=== PATIENT | male | born 2005 | race Caucasian/White ===

== ENCOUNTER 2024-10-25 23:28 | Emergency (ER) | payer OTHER ==
[~2024-10-25] VITALS: Ht 175.3 cm; Wt 81.5 kg
[2024-10-25] MEDS: NS (Normal Saline) 0.9% 1,000 ML IV ONE (23:50)
[2024-10-26 00:38] LABS: BASO # 0.1 10^3/uL (0.0-0.2); EOS # 0.1 10^3/uL (0.0-0.5); HEMATOCRIT 41.1 % (42.0-52.0); HEMOGLOBIN 14.6 g/dl (13.5-17.5); LYMPH # 2.4 10^3/uL (1.5-5.0); MEAN CORPUSCULAR HEMOGLOBIN 32.2 pg (27.0-33.0); MEAN CORPUSCULAR HGB CONC 35.5 g/dl (32.0-36.5); MEAN CORPUSCULAR VOLUME 90.5 fl (80.0-96.0); MONO # 0.6 10^3/uL (0.0-0.8); MONO % 6.4 % (2.0-8.0); NEUTROPHILS # 5.8 10^3/uL (1.5-8.5); NEUTROPHILS % 64.3 % (36.0-66.0); PLATELET COUNT, AUTOMATED 202 10^3/uL (150-450); RED BLOOD COUNT 4.54 10^6/uL (4.30-6.10)
[2024-10-26 00:46] LABS: ALBUMIN 4.2 G/DL (3.2-5.2); ALKALINE PHOSPHATASE 106 U/L (40-129); ALT/SGPT 43 U/L (7.0-40); AST/SGOT 53 U/L (<34); BILIRUBIN,TOTAL 0.4 MG/DL (0.3-1.2); BLOOD UREA NITROGEN 14 MG/DL (9-23); CALCIUM LEVEL 8.5 MG/DL (8.5-10.1); CARBON DIOXIDE LEVEL 24 MMOL/L (20-31); CHLORIDE LEVEL 112 MMOL/L (98-107); CREATININE FOR GFR 1.08 MG/DL (0.70-1.30); GLUCOSE, FASTING 114 MG/DL (60-100); POTASSIUM SERUM 3.6 MMOL/L (3.5-5.1); SODIUM LEVEL 147 MMOL/L (136-145); TOTAL PROTEIN 7.2 G/DL (5.7-8.2)
[2024-10-26 00:52] LABS: ETHYL ALCOHOL (ETHANOL) 0.293 % (0.000-0.010)
[2024-10-26] MEDS: UNRESOLVED CLARIFICATION ENTRY XX STA (01:19)
[2024-10-26] MEDS: ONDANSETRON 4MG 2ML VIAL IV ONE (01:28)
[2024-10-26 03:00] VITALS: TEMP 97.8
[2024-10-26] MEDS: LIDOCAINE 2% MDV 20ML VIAL SC ONE (04:15)
[2024-10-26 04:45] VITALS: BP 148/75; O2SAT 99
[2024-10-26] MEDS: NEOSPORIN OINT 0.9 GM PKT TOP ONE (05:00)
[2024-10-26 05:31] LABS: METHADONE URINE NEGATIVE (NEGATIVE)
[2024-10-26 05:32] LABS: AMPHETAMINES LEVEL URINE NEGATIVE (NEGATIVE); BARBITURATES URINE NEGATIVE (NEGATIVE); CANNABINOIDS URINE NEGATIVE (NEGATIVE); COCAINE METABOLITE URINE NEGATIVE (NEGATIVE); OPIATES URINE NEGATIVE (NEGATIVE); PHENCYCLIDINE URINE NEGATIVE (NEGATIVE)
[2024-10-26 05:34] LABS: BENZODIAZEPINES URINE POSITIVE (NEGATIVE)
== END 2024-10-26 05:23 | disposition home or self-care (01) ==
LOC: M ED 23:28
DX: F10.129 Alcohol abuse with intoxication, unspecified (principal); S01.111A Laceration without foreign body of right eyelid and periocular area, initial encounter; W22.01XA Walked into wall, initial encounter; Y92.89 Other specified places as the place of occurrence of the external cause; Y93.9 Activity, unspecified; Y99.9 Unspecified external cause status
CPT/HCPCS: 12013; 70450; 80053; 80307; 82077; 85025; 96374; 99285; J2405